=== PATIENT | female | born 1990 | race African-American/Black ===

== ENCOUNTER 2018-12-18 00:06 | Emergency (ER) | payer MEDICAID ==
[~2018-12-18] VITALS: Ht 170.2 cm; Wt 54.4 kg
[~2018-12-18 00:06] MED LIST: PRENTAB79
[2018-12-18 00:15] VITALS: BP 112/74
[2018-12-18] MEDS ORDERED: ACETAMINOPHEN/CODEINE#3 (300/30mg) TAB PO ONE (03:30)
[2018-12-18] MEDS ORDERED: ACETAMINOPHEN/CODEINE#3 (300/30mg) TAB ONE (03:33)
== END 2018-12-18 03:51 | disposition home or self-care (01) ==
LOC: EDBD 00:06 → ER 00:13
DX: S10.93XA Contusion of unspecified part of neck, initial encounter (principal); M62.838 Other muscle spasm; F17.210 Nicotine dependence, cigarettes, uncomplicated; Z90.49 Acquired absence of other specified parts of digestive tract; W18.39XA Other fall on same level, initial encounter; Y93.89 Activity, other specified; Y99.8 Other external cause status; Y92.044 Garage of boarding-house as the place of occurrence of the external cause
CPT/HCPCS: 72125

== ENCOUNTER 2024-07-20 11:05 | Emergency (ER) | payer SELFPAY ==
[~2024-07-20] VITALS: Ht 172.7 cm; Wt 68.2 kg
[2024-07-20] MEDS: HYDROmorphone HCL 2 MG/ML VL/or syr IV ONE (11:15)
[2024-07-20 11:31] VITALS: BP 146/93; PULSE 100; RESP 18; O2SAT 98
[2024-07-20 11:41] LABS: Basophils # (auto) 0.1 10 ^3/uL (0-0.2); Basophils % (auto) 1.2 % (0.0-2.0); Eosinophils # (auto) 0.1 10 ^3/uL (0-0.8); Eosinophils % (auto) 0.9 % (0.0-7.0); Hematocrit 38.6 % (36.0-46.0); Hemoglobin 13.4 g/dL (12.2-16.2); Lymphocytes # (auto) 2.7 10 ^3/uL (0.4-5.4); Lymphocytes % (auto) 29.1 % (10.0-50.0); Mean Corpuscular Hemoglobin 31.9 pg (28.0-32.0); Mean Corpuscular Hgb Conc. 34.7 g/dL (32.0-36.0); Mean Corpuscular Volume 91.9 fL (80.0-100.0); Monocytes # (auto) 0.6 10 ^3/uL (0-1.3); Monocytes % (auto) 6.4 % (0.0-12.0); Neutrophils # (auto) 5.8 10 ^3/uL (1.6-8.6); Neutrophils % (auto) 62.4 % (37.0-80.0); Nucleated Red Blood Cells % 0.1 %; Platelet Count (auto) 348 10^3/uL (140-450); Red Cell Distribution Width 13.9 % (11.8-14.3); White Blood Cell 9.4 10^3/uL (4.4-10.8)
[2024-07-20 11:49] LABS: Chloride 109 mmol/L (98-107); Potassium 3.8 mmol/L (3.5-5.1); Sodium 141 mmol/L (136-145)
[2024-07-20 11:50] LABS: Anion Gap 5 (5-15); Calcium 9.5 mg/dL (8.7-10.4); Carbon Dioxide 27 mmol/L (20-30)
[2024-07-20 11:55] LABS: BUN/Creatinine Ratio 10.1 (10.0-20.0); Blood Urea Nitrogen 8 mg/dL (9-23); Glucose 97 mg/dL (74-106)
[2024-07-20] MEDS ORDERED: HYDR-4902 PO (16:57)
[2024-07-20] MEDS: HYDROcodone-ACET 10/325MG TAB PO ONE (17:38)
== END 2024-07-20 18:10 | disposition home or self-care (01) ==
LOC: ER 11:05 → EDBD 11:05 → ER 16:37
DX: G43.909 Migraine, unspecified, not intractable, without status migrainosus (principal); F17.210 Nicotine dependence, cigarettes, uncomplicated; Z98.890 Other specified postprocedural states; Z79.899 Other long term (current) drug therapy
CPT/HCPCS: 36415; 70450; 80048; 85025